=== PATIENT | female | born 1980 | race Caucasian/White ===

== ENCOUNTER 2017-03-30 19:52 | Emergency (ER) | payer BC ==
[~2017-03-30] VITALS: Ht 162.6 cm; Wt 67.0 kg
[2017-03-30 20:10] VITALS: Ht 162.6 cm; Wt 67.0 kg
[2017-03-30] MEDS ORDERED: morphine 4 MG/ML VIAL IV STA (21:40)
[2017-03-30] MEDS ORDERED: ONDANSETRON 4 MG INJ IV STA (21:40)
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
[2017-03-30 22:42] LABS: ABNORMAL IP MESSAGE 1; HEMATOCRIT 35.8 % (37.0-47.0); HEMOGLOBIN 12.3 g/dl (12.0-16.0); MEAN CORPUSCULAR HEMOGLOBIN 31.1 pg (29.0-33.0); MEAN CORPUSCULAR HGB CONC 34.4 g/dl (32.0-37.0); MEAN CORPUSCULAR VOLUME 90.6 fl (82.0-101.0); PLATELET COUNT 286 10^3/UL (140-415); RED BLOOD COUNT 3.95 10^6/ul (4.20-5.40); RED CELL DISTRIBUTION WIDTH 12.9 % (11.5-14.5)
[2017-03-30 22:48] LABS: ALBUMIN 3.8 g/dl (3.3-4.9); ALBUMIN/GLOBULIN RATIO 1.15; CALCIUM 9.4 mg/dl (8.4-10.2); CREATININE 0.91 mg/dl (0.44-1.00); POTASSIUM 3.3 mmol/L (3.5-5.1); TOTAL PROTEIN 7.1 g/dl (6.1-8.1)
[2017-03-30 22:51] LABS: POSITIVE DIFF @See below
[2017-03-31] MEDS ORDERED: SOD CHLORIDE 0.9% 100 ML ONE (00:16)
[2017-03-31] MEDS ORDERED: IOHEXOL 300MG/ML 150 ML BTL ONE (00:16)
--- NOTE | 2017-03-31 00:22 | RADRPT ---
PROCEDURE: CT Head without. CLINICAL INDICATION: Headache. TECHNIQUE: The study was performed utilizing a multi-slice, multidetector CT scanner. Direct spira l 1 mm axial sections were obtained through the head without the use of intravenous contrast materia l. 1 or more of the following dose reduction techniques were utilized: Automated exposure control, adjustment of the mA and/or kV according to patient's size, iterative reconstruction technique. Co wiley and sagittal reformations were obtained. The images were reviewed on a PACS workstation. RADIATION DOSE: CTDIvol: 41.3 mGyDLP: 720.2 mGy-cm COMPARISON: No prior studies are available for comparison. FINDINGS: There is no intracranial hemorrhage, extra-axial fluid collection, mass lesion, midline shift or hyd rocephalus. The ventricles, sulci and cisterns are within normal limits. The white matter is unrem arkable. The nuñez-white matter differentiation is preserved. The basal cisterns are patent. The m idline structures are intact. The orbits, calvarium and extracranial soft tissues are normal in pavan earance. The visualized paranasal sinuses, mastoid air cells and middle ear cavities are normally ae rated. There is pneumatization of the bilateral petrous apices without evidence of inflammatory clark ges, normal variant. IMPRESSION: 1. No acute intracranial abnormality. No intracranial hemorrhage, extra-axial fluid collection, ma ss lesion or hydrocephalous. RPTAT: HGAS .Dirk Costello MD, Date Time Electronically viewed and signed by .Dirk Costello MD, MD on 03/31/2017 00:22 .S/
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
[2017-03-31] MEDS ORDERED: ONDANSETRON 4 MG INJ IV ONE (00:26)
[2017-03-31] MEDS ORDERED: morphine 4 MG/ML VIAL IV ONE (00:26)
--- NOTE | 2017-03-31 01:10 | RADRPT ---
PROCEDURE: CT ABDOMEN/PELVIS WITH CONTRAST CLINICAL INDICATION: 36-year-old female with abdominal pain. TECHNIQUE: The study was performed utilizing a [employer] VCT 64-slice CT scanner. Direct axia l sections were obtained through the abdomen and pelvis with the use of 100 cc of Isovue-300 nonioni c intravenous contrast material. Sagittal and coronal reformations were obtained. One or more of the following dose reduction techniques were utilized: automated exposure control, adjustment of the mA and/or kV according to patient's size or use of iterative reconstruction technique. The images wer e reviewed on a PACS workstation. CTD/vol = 9.7 mGy; Total Exam DLP = 548.3 mGy-cm. COMPARISON: None. FINDINGS: There is minimal bibasilar subsegmental atelectasis. There is no evidence for significant pleural e ffusion. The liver has a normal size and contour without focal areas of abnormal density or contras t enhancement. No intrahepatic nor extrahepatic biliary ductal dilatation is seen. The gallbladder d emonstrates no wall thickening nor pericholecystic fluid. No biliary stones are evident. The pancrea s is without areas of abnormal attenuation or contrast enhancement. This spleen is identified and h as a normal size without abnormal density or contrast enhancement. The adrenal glands are unremarkab le. The kidneys are functional bilaterally. There is a nonobstructing mid-right renal calculus trevor uring 3 x 3 mm. The left kidney is without abnormal density, calculi or obstructive uropathy. The u rinary bladder contains urine. There is mild retained stool identified throughout the colon without gross bowel obstruction. The appendix is visualized and is without edema or surrounding inflammatory reaction. The uterus and adnexal regions are unremarkable. There is no significant free fluid. The aortoiliac vessels are without aneurysmal dilatation. The osseous structures are intact . IMPRESSION: 1. Minimal bibasilar subsegmental atelectasis. 2. Mild retained stool within the colon without obstruction. .Jeffrey Alexandra MD, MD Date Time Electronically viewed and signed by .Jeffrey Alexandra MD, MD on 03/31/2017 01:10 .M/
[2017-03-31 01:50] LABS: URINE BLOOD (Dip) POC Trace-lysed (NEGATIVE)
[2017-03-31] MEDS ORDERED: HYDR-906 PO (02:14)
[2017-03-31] MEDS ORDERED: IBUP-1542 PO (02:14)
[2017-03-31] MEDS ORDERED: ONDA4TAB14 PO (02:14)
[2017-03-31] MEDS ORDERED: POTASSIUM CHLORIDE (SR) 20 MEQ TAB PO ONE ×2 (02:19)
[2017-03-31 02:49] VITALS: BP 99/60; PULSE 72; RESP 18; TEMP 97.1
== END 2017-03-31 02:50 | disposition home or self-care (01) ==
LOC: E/R 19:52
DX: S39.91XA Unspecified injury of abdomen, initial encounter (principal); R10.2 Pelvic and perineal pain; S19.9XXA Unspecified injury of neck, initial encounter; S79.911A Unspecified injury of right hip, initial encounter; R51 Headache; R40.2142 Coma scale, eyes open, spontaneous, at arrival to emergency department; R40.2252 Coma scale, best verbal response, oriented, at arrival to emergency department; R40.2362 Coma scale, best motor response, obeys commands, at arrival to emergency department; V43.62XA Car passenger injured in collision with other type car in traffic accident, initial encounter
CPT/HCPCS: 36415; 70450; 72125; 74177; 80053; 81003; 83690; 84703; 85025; 96374; 96375; 96376; 99285; J2270; J2405; Q9967